=== PATIENT | female | born 1965 | race Caucasian/White ===

== ENCOUNTER 2017-07-31 19:27 | Emergency (ER) | payer OTHER ==
[~2017-07-31] VITALS: Ht 167.6 cm; Wt 119.5 kg
[2017-07-31 19:33] VITALS: TEMP 37.2; Ht 167.6 cm; Wt 119.5 kg
[2017-07-31 19:39] VITALS: O2SAT 96
[2017-07-31 19:51] LABS: BASO % 0.5 %; BASO ABS # 0.04 K/uL (0-0.2); COMPLETE YES; EOS % 0.5 %; HEMATOCRIT 40.2 % (37-47); IG% 0.5 %; LYMPH % 25.3 %; MEAN CELL VOLUME 90.1 fL (80-100); MEAN CORPUSCULAR HGB CONC 33.3 g/dl (32-36); MEAN PLATELET VOLUME 10.3 fL (7.4-10.4); MONO % 5.3 %; NEUT % 67.9 %; PLATELET COUNT 293 K/uL (130-400); RED BLOOD COUNT 4.46 M/uL (4.2-5.4)
--- NOTE | 2017-07-31 19:54 | DIAGNOSTIC IMAGING REPORT ---
CHEST ONE VIEW PORTABLE CLINICAL HISTORY: Evaluate Fever/Sepsis dyspnea COMPARISON STUDY: No previous studies for comparison. FINDINGS: The bones soft tissues and hemidiaphragms are normal. The cardiomediastinal silhouette is normal. The lungs are clear. The pulmonary vasculature is normal. IMPRESSION: Negative chest. The above report was generated using voice recognition software. It may contain grammatical, syntax or spelling errors. Electronically signed by: Joaquín Wharton M.D. 07/31/2017 7:53 PM Dictated Date/Time: 07/31/2017 7:52 PM
[2017-07-31 20:01] LABS: PARTIAL THROMBOPLASTIN RATIO 1.2; PROTHROMBIN TIME (PATIENT) 11.1 SECONDS (9.0-12.0)
[2017-07-31 20:05] LABS: ALT/SGPT 25 U/L (12-78); BLOOD UREA NITROGEN 13 mg/dl (7-18); BUN/CREATININE RATIO 14.2 (10-20); CALCIUM 9.2 mg/dl (8.5-10.1); CARBON DIOXIDE 25 mmol/L (21-32); CHLORIDE 104 mmol/L (98-107); CREATININE 0.92 mg/dl (0.60-1.20); GLUCOSE 118 mg/dl (70-99); POTASSIUM 3.8 mmol/L (3.5-5.1); SODIUM 138 mmol/L (136-145)
[2017-07-31 20:10] LABS: ALKALINE PHOSPHATASE 78 U/L (45-117); AST/SGOT 20 U/L (15-37); CKMB/CK RATIO 0.8 (0-3.0)
[2017-07-31] MEDS ORDERED: LEVO25TA5 PO (20:40)
--- NOTE | 2017-07-31 21:16 | EMERGENCY ROOM VISIT NOTE ---
History Report prepared by [place]: Myla Villatoro Under the Supervision of: Dr. Nas Fuentes D.O. First contact with patient: 19:31 Chief Complaint: CHEST PAIN Stated Complaint: CHEST PAIN History of Present Illness The patient is a 51 year old female who presents to the Emergency Room with complaints of resolved chest pain beginning 30 minutes ago. The patient states that she ate dinner tonight and began having continuous sharp chest pain shortly after. She reports that the pain radiated into her left shoulder and arm. She notes that she got nitroglycerin and Aspirin [employer] and her pain is now resolved. The patient notes that she was anxious, shaky, chilled, and slightly short of breath. She denies any leg pain, leg swelling, and personal or family history of cardiac issues. She states that she her pain is not worsened by exertion. Source of History: patient Onset: 30 minutes ago Position: chest Quality: sharp Timing: resolved Associated Symptoms: + chills, + SOB Note: Pt complains of left arm pain, left shoulder pain, anxious, shaky. She denies any leg pain, leg swelling, and personal or family history of cardiac issues. Review of Systems See HPI for pertinent positives & negatives. A total of 10 systems reviewed and were otherwise negative. Past Medical & Surgical Medical Problems: (1) Hypothyroid Family History No pertinent family history stated. Social History Smoking Status: Never Smoker Smokeless Tobacco Use: No Housing Status: lives with family Occupation Status: employed Current/Historical Medications Scheduled Levothyroxine Sodium (Levothyroxine Sodium), 25 MCG PO DAILY Allergies Coded Allergies: No Known Allergies (Unverified , 07/31/17) Physical Exam Vital Signs Date Time Temp Pulse Resp B/P (MAP) Pulse Ox O2 Delivery O2 Flow Rate FiO2 07/31/17 21:34 65 18 113/78 97 07/31/17 20:22 73 22 104/67 95 Room Air 07/31/17 19:39 96 Room Air 07/31/17 19:38 87 07/31/17 19:33 37.2 86 20 126/87 96 Room Air 07/31/17 19:33 96 Room Air 07/31/17 19:33 96 Room Air Physical Exam CONSTITUTIONAL/VITAL SIGNS: Reviewed / noted above. GENERAL: Non-toxic in appearance. INTEGUMENTARY: Warm, dry, and Mercedes. HEAD: Normocephalic. EYES: without scleral icterus or trauma. ENT/OROPHARYNX: clear and moist. LYMPHADENOPATHY/NECK: Is supple without lymphadenopathy or meningismus. RESPIRATORY: Lungs clear and equal. CARDIOVASCULAR: Regular rate and rhythm. GI/ABDOMEN: Soft and nontender. No organomegaly or pulsatile mass. No rebound or guarding. Normal bowel sounds. EXTREMITIES: Warm and well perfused. BACK: No CVA tenderness. NEUROLOGICAL: Intact without focal deficits. PSYCHIATRIC: normal affect. MUSCULOSKELETAL: Normally developed with good muscle tone. Medical Decision & Procedures ER Provider Diagnostic Interpretation: X ray results and stated below per my interpretation and radiology interpretation. CHEST ONE VIEW PORTABLE FINDINGS: The bones soft tissues and hemidiaphragms are normal. The cardiomediastinal silhouette is normal. The lungs are clear. The pulmonary vasculature is normal. IMPRESSION: Negative chest. The above report was generated using voice recognition software. It may contain grammatical, syntax or spelling errors. Electronically signed by: Joaquín Wharton M.D. 07/31/2017 7:53 PM Dictated Date/Time: 07/31/2017 7:52 PM Laboratory Results 07/31/17 19:40 Red Blood Count 4.46, Mean Corpuscular Volume 90.1, Mean Corpuscular Hemoglobin 30.0, Mean Corpuscular Hemoglobin Concent 33.3, Mean Platelet Volume 10.3, Neutrophils (%) (Auto) 67.9, Lymphocytes (%) (Auto) 25.3, Monocytes (%) (Auto) 5.3, Eosinophils (%) (Auto) 0.5, Basophils (%) (Auto) 0.5, Neutrophils # (Auto) 5.64, Lymphocytes # (Auto) 2.10, Monocytes # (Auto) 0.44, Eosinophils # (Auto) 0.04, Basophils # (Auto) 0.04 07/31/17 19:40 Test 07/31/17 19:40 07/31/17 20:30 White Blood Count 8.30 K/uL (4.8-10.8) Red Blood Count 4.46 M/uL (4.2-5.4) Hemoglobin 13.4 g/dL (12.0-16.0) Hematocrit 40.2 % (37-47) Mean Corpuscular Volume 90.1 fL (80-100) Mean Corpuscular Hemoglobin 30.0 pg (25-34) Mean Corpuscular Hemoglobin Concent 33.3 g/dl (32-36) Platelet Count 293 K/uL (130-400) Mean Platelet Volume 10.3 fL (7.4-10.4) Neutrophils (%) (Auto) 67.9 % Lymphocytes (%) (Auto) 25.3 % Monocytes (%) (Auto) 5.3 % Eosinophils (%) (Auto) 0.5 % Basophils (%) (Auto) 0.5 % Neutrophils # (Auto) 5.64 K/uL (1.4-6.5) Lymphocytes # (Auto) 2.10 K/uL (1.2-3.4) Monocytes # (Auto) 0.44 K/uL (0.11-0.59) Eosinophils # (Auto) 0.04 K/uL (0-0.5) Basophils # (Auto) 0.04 K/uL (0-0.2) RDW Standard Deviation 45.3 fL (36.4-46.3) RDW Coefficient of Variation 13.7 % (11.5-14.5) Immature Granulocyte % (Auto) 0.5 % Immature Granulocyte # (Auto) 0.04 K/uL (0.00-0.02) Prothrombin Time 11.1 SECONDS (9.0-12.0) Prothromb Time International Ratio 1.0 (0.9-1.1) Activated Partial Thromboplast Time 30.7 SECONDS (21.0-31.0) Partial Thromboplastin Ratio 1.2 D-Dimer 210 ug/L FEU (0-500) Anion Gap 9.0 mmol/L (3-11) Est Creatinine Clear Calc Drug Dose 96.3 ml/min Estimated GFR () 84.1 Estimated GFR (Non- 72.6 BUN/Creatinine Ratio 14.2 (10-20) Calcium Level 9.2 mg/dl (8.5-10.1) Total Bilirubin 0.3 mg/dl (0.2-1) Direct Bilirubin < 0.1 mg/dl (0-0.2) Aspartate Amino Transf (AST/SGOT) 20 U/L (15-37) Alanine Aminotransferase (ALT/SGPT) 25 U/L (12-78) Alkaline Phosphatase 78 U/L (45-117) Total Creatine Kinase 80 U/L (26-192) Creatine Kinase MB 0.6 ng/ml (0.5-3.6) Creatine Kinase MB Ratio 0.8 (0-3.0) Total Protein 7.8 gm/dl (6.4-8.2) Albumin 4.0 gm/dl (3.4-5.0) Lipase 179 U/L (73-393) Troponin I < 0.015 ng/ml (0-0.045) Laboratory results as stated above per my review. ECG Indication: chest pain Rate (beats per minute): 82 Rhythm: normal sinus Findings: no acute ischemic change, no ectopy ED Course 1930: Previous medical records were reviewed. The patient was evaluated in room A2. A complete history and physical examination was performed. 2117: On reevaluation, the patient is doing well. I discussed the results and findings with the patient. l verbalized agreement of the treatment plan. She was discharged home. Medical Decision The differential was considered includes acute myocardial infarction, acute coronary syndrome, myocarditis, pericarditis, pericardial effusions /tamponad, esophageal perforation, thoracic aortic dissection, pulmonary embolism, pneumonia, pneumothorax, pancreatitis, shingles, acute cholecystitis, perforated abdominal viscus. This is a 51-year-old female who presents to the ED with a chief complaint of left shoulder and arm pain as well as some chest discomfort which she describes it as sharp continuous pain. The patient states that she also felt shaky and cold. The patient reports that her symptoms have subsided after nitroglycerin and aspirin by EMS. The patient denies being a smoker. She denies early family history of heart disease. She denies any recent exertional cardiopulmonary symptoms. The patient's exam is normal. Vital signs are normal. Blood work reveals a normal CBC, normal complete metabolic panel and a normal chest x-ray. EKG shows a normal sinus rhythm. Troponin and d-dimer's are negative. The patient was told results the test. She was not given any additional treatment here. She is felt to be stable for discharge. I do not feel the patient's symptoms are cardiopulmonary related. There is no indication of acute [place]. I do not suspect unstable angina, PE, pneumonia, vascular catastrophe or other emergent pathology. Medication Reconcilliation Current Medication List: was personally reviewed by me Blood Pressure Screening Patient's blood pressure: Normal blood pressure Blood pressure disposition: Did not require urgent referral Impression Primary Impression: Left sided chest pain Scribe Attestation The scribe's documentation has been prepared under my direction and personally reviewed by me in its entirety. I confirm that the note above accurately reflects all work, treatment, procedures, and medical decision making performed by me. Departure Information Dispostion Home / Self-Care Forms Call Back Authorization, HOME CARE DOCUMENTATION FORM, IMPORTANT VISIT INFORMATION Patient Instructions Chest Pain - [facility] Additional Instructions Follow-up with your doctor for further care and evaluation in 1-2 days. Return to the emergency department for worsening or new symptoms or any concerns. You have been examined and treated today on an emergency basis only. This is not a substitute for, or an effort to provide, complete comprehensive medical care. It is impossible to recognize and treat all injuries or illnesses in a single emergency department visit. It is therefore important that you follow up closely with your doctor. Call as soon as possible for an appointment.
[2017-07-31 21:34] VITALS: BP 113/78; PULSE 65; O2SAT 97
== END 2017-07-31 21:35 | disposition home or self-care (01) ==
LOC: EDBD 19:27 → C.EDA 19:28
DX: R07.89 Other chest pain (principal); M25.512 Pain in left shoulder; E03.9 Hypothyroidism, unspecified; Z79.899 Other long term (current) drug therapy